=== PATIENT | male | born 1985 | race Asian ===

== ENCOUNTER 2019-12-24 18:30 | Emergency (ER) | payer OTHER ==
[~2019-12-24] VITALS: Ht 182.9 cm; Wt 65.8 kg
[2019-12-24 18:56] LABS: PLATELET COUNT 252 K/uL (142-355)
[2019-12-24 19:04] LABS: POTASSIUM 3.8 mmol/L (3.6-5.2); SODIUM 135 mmol/L (136-145)
[2019-12-24 19:13] LABS: PARTIAL THROMBOPLASTIN TIME 24.3 SECONDS (24.5-33.6)
[2019-12-24 20:31] VITALS: BP 118/82; TEMP 98.7
== END 2019-12-24 20:31 | disposition home or self-care (01) ==
LOC: ED 18:30
PROVIDERS: Hospitalist
DX: R07.89 Other chest pain (principal); I31.9 Disease of pericardium, unspecified
CPT/HCPCS: 80053; 82550; 82553; 83880; 84484; 85027; 85379; 85610; 85730; 93005; 96365; 96367; 99284; J1885; J2405

== ENCOUNTER 2020-01-23 02:52 | Emergency (ER) | payer OTHER ==
[~2020-01-23] VITALS: Ht 182.9 cm; Wt 68.0 kg
[2020-01-23 04:29] LABS: PLATELET COUNT 251 K/uL (142-355)
[2020-01-23 04:43] LABS: POTASSIUM 3.2 mmol/L (3.6-5.2)
[2020-01-23 06:35] VITALS: BP 136/86; TEMP 98.9
== END 2020-01-23 06:36 | disposition home or self-care (01) ==
LOC: ED 02:52
PROVIDERS: Family Medicine
PROC: 0HQ0XZZ Repair Scalp Skin, External Approach (ICD-10-PCS; principal; 2020-01-23)
DX: S01.81XA Laceration without foreign body of other part of head, initial encounter (principal); E87.6 Hypokalemia; F10.20 Alcohol dependence, uncomplicated; Y90.5 Blood alcohol level of 100-119 mg/100 ml; F12.90 Cannabis use, unspecified, uncomplicated; F14.90 Cocaine use, unspecified, uncomplicated; W50.0XXA Accidental hit or strike by another person, initial encounter; Y92.89 Other specified places as the place of occurrence of the external cause
CPT/HCPCS: 36415; 80053; 80307; 80320; 81000; 85027; 90471; 90715; 99283

== ENCOUNTER 2020-01-29 14:53 | Emergency (ER) | payer OTHER | END 2020-01-29 15:00 | disposition home or self-care (01) | LOC: ED 14:53 | DX: Z51.89 Encounter for other specified aftercare (principal) ==

== ENCOUNTER 2020-02-08 12:42 | Emergency (ER) | payer OTHER ==
[~2020-02-08] VITALS: Ht 182.9 cm; Wt 66.2 kg
[2020-02-08 13:09] VITALS: BP 137/92; TEMP 98
== END 2020-02-08 13:09 | disposition home or self-care (01) ==
LOC: ED 12:42
DX: Z48.02 Encounter for removal of sutures (principal)

== ENCOUNTER 2020-02-26 11:40 | Emergency (ER) | payer OTHER ==
[~2020-02-26] VITALS: Ht 182.9 cm; Wt 66.2 kg
[2020-02-26 11:50] VITALS: BP 120/82; TEMP 98.1
== END 2020-02-26 12:12 | disposition home or self-care (01) ==
LOC: ED 11:40
DX: Z48.02 Encounter for removal of sutures (principal)